=== PATIENT | male | born 1950 | race African-American/Black ===

== ENCOUNTER 2018-11-11 16:44 | Inpatient (IN) | payer OTHER ==
[2018-11-11 18:49] VITALS: BMI 20.3
--- NOTE | 2018-11-11 20:37 | HP ---
CIWA Score - Admission Criteria [facility]ASAS Guidelines: Admission for Medically Managed Detox: Requires at least one of the followin. CIWA greater than 12 2. Seizures within the past 24 hours 3. Delirium tremens within the past 24 hours 4. Hallucinations within the past 24 hours 5. Acute intervention needed for co occurring medical disorder 6. Acute intervention needed for co occurring psychiatric disorder 7. Severe withdrawal that cannot be handled at a lower level of care (continued vomiting, continued diarrhea, abnormal vital signs) requiring intravenous medication and/or fluids 8. Admission ROS [facility] Chief Complaint: Heroin dependence seeking admission to Rehab Allergies/Adverse Reactions: Allergies Allergy/AdvReac Type Severity Reaction Status Date / Time No Allergy Information Allergy Verified 11/11/18 18:30 Available History of Present Illness: 68 years old male with a long history of heroin dependence (reports 37 years ) is seeking admission to Rehab. He has history of HIV+, hypertension, hypercholesterolemia, neuropathy, CVA (2014), BPH, depression, Hep. C, TB ( treated with INH for a year), and anxiety. He denies suicidal ideation at this time. Patient is on Methadone 80mg tablet oral daily at [facility]. Last day medicated is today, 11/11/2018. Dose is yet to be confirmed by the nurse Exam Limitations: Physical Impairment - Ebola screening Have you traveled outside of the country in the last 21 days: No Have you had contact with anyone from an Ebola affected area: No Do you have a fever: No - Review of Systems Constitutional: No Symptoms Reported EENT: reports: No Symptoms Reported Respiratory: reports: No Symptoms reported Cardiac: reports: No Symptoms Reported GI: reports: No Symptoms Reported : reports: No Symptoms Reported Musculoskeletal: reports: No Symptoms Reported Integumentary: reports: Dryness Neuro: reports: No Symptoms reported Endocrine: reports: No Symptoms Reported Hematology: reports: No Symptoms Reported Psychiatric: reports: No Sypmtoms Reported, Mood/Affect Appropiate Other Systems: Reviewed and Negative Patient History - Patient Medical History Hx Anemia: No Hx Asthma: No Hx Chronic Obstructive Pulmonary Disease (COPD): No Hx Cancer: No Hx Cardiac Disorders: No Hx Congestive Heart Failure: No Hx Hypertension: Yes (Atenolol) Hx Hypercholesterolemia: Yes (Atorvastatin) Hx Pacemaker: No HX Cerebrovascular Accident: Yes (STROKE IN 2014 - Aspirin 81mg) Hx Seizures: No Hx Dementia: No Hx Diabetes: No Hx Gastrointestinal Disorders: No Hx Liver Disease: No Hx Genitourinary Disorders: No Hx Sexually Transmitted Disorders: No Hx Renal Disease (ESRD): No Hx Thyroid Disease: No Hx Human Immunodeficiency Virus (HIV): Yes (ON MEDICATION) Hx Hepatitis C: Yes Hx Depression: Yes Hx Suicide Attempt: No (Denies suicidal ideation at this time) Hx Bipolar Disorder: No Hx Schizophrenia: No Other Medical History: TB - Treated with INH for a year - Patient Surgical History Past Surgical History: Yes Hx Neurologic Surgery: No Hx Cataract Extraction: No Hx Cardiac Surgery: No Hx Lung Surgery: No Hx Abdominal Surgery: No Hx Appendectomy: No Hx Cholecystectomy: No Hx Genitourinary Surgery: No Hx Orthopedic Surgery: Yes (BROKEN JAW AND LEFT ARM REPAIR (1987), ) Anesthesia Reaction: No - PPD History Previous Implant?: No (H/O TB (Treated with INH for a year)) Implanted On Prior [facility] Admission?: No PPD to be Administered?: No - Reproductive History Patient is a Female of Child Bearing Age (11 -55 yrs old): No (male) - Smoking Cessation Smoking history: Current every day smoker Have you smoked in the past 12 months: Yes Aproximately how many cigarettes per day: 4 Hx Chewing Tobacco Use: No Initiated information on smoking cessation: Yes 'Breaking Loose' booklet given: 11/11/18 - Substance & Tx. History Hx Alcohol Use: No Hx Substance Use: Yes Substance Use Type: Cocaine, Heroin, Opiates Hx Substance Use Treatment: Yes ([place], [place]) - Substances abused Heroin Substance route: Inhalation Frequency: Daily Amount used: 4 to 5 bags Age of first use: 20 Date of last use: 11/11/18 Cocaine Substance route: Inhalation Frequency: 3-6 times per week Amount used: 4 to 6 bags Age of first use: 20 Date of last use: 11/10/18 Family Disease History - Family Disease History Family Disease History: Heart Disease: Father (Heart attack -), Mother Admission Physical Exam BHS - Vital Signs Vital Signs: Vital Signs - 24 hr 11/11/18 11/11/18 18:38 19:46 Temperature 97.1 F L 97.1 F L Pulse Rate 55 L 55 L Respiratory 18 18 Rate Blood Pressure 197/98 H 197/98 H - Physical General Appearance: Yes: Within Normal Limits HEENTM: Yes: Normal ENT Inspection, Normal Voice, RON Respiratory: Yes: Lungs Clear, Normal Breath Sounds, No Respiratory Distress Neck: Yes: Supple Breast: Yes: Breast Exam Deferred Cardiology: Yes: Bradycardia Abdominal: Yes: Normal Bowel Sounds Genitourinary: Yes: Within Normal Limits Back: Yes: Normal Inspection Musculoskeletal: Yes: Within Normal Limits Extremities: Yes: Within Normal Limits, Normal Inspection Neurological: Yes: Alert, Normal Mood/Affect Integumentary: Yes: Within Normal Limits Lymphatic: Yes: Within Normal Limits - Diagnostic (1) Opioid dependence with withdrawal Current Visit: Yes Status: Acute (2) Nicotine dependence Current Visit: Yes Status: Acute Qualifiers: Nicotine product type: cigarettes Substance use status: uncomplicated Qualified Code(s): F17.210 - Nicotine dependence, cigarettes, uncomplicated (3) Hypertension Current Visit: Yes Status: Chronic Qualifiers: Hypertension type: essential hypertension Qualified Code(s): I10 - Essential (primary) hypertension (4) HIV (human immunodeficiency virus infection) Current Visit: Yes Status: Chronic Qualifiers: HIV symptom status: unspecified Qualified Code(s): B20 - Human immunodeficiency virus [HIV] disease (5) Neuropathy Current Visit: Yes Status: Chronic (6) Depression Current Visit: Yes Status: Chronic Qualifiers: Depression Type: unspecified Qualified Code(s): F32.9 - Major depressive disorder, single episode, unspecified (7) Anxiety Current Visit: Yes Status: Acute (8) Hypercholesterolemia Current Visit: Yes Status: Chronic (9) BPH (benign prostatic hyperplasia) Current Visit: Yes Status: Chronic Qualifiers: Lower urinary tract symptom detail: unspecified (10) History of TB (tuberculosis) Current Visit: Yes Status: Chronic Cleared for Admission S - Detox or Rehab [facility] Level of Care: Observation Bed Claeared for Rehab Admission: Yes Breathalyzer - Breathalyzer Breathalyzer: 0 Urine Drug Screen - Test Device Lot number: [id number] Expiration date: 09/06/20 - Control Is test valid?: Yes - Results Drug screen NEGATIVE: No Urine drug screen results: SHIN-Cocaine, FEN-Fentanyl, MOP-Opiates, OXY-Oxycodone , MTD-Methadone Inpatient Rehab Admission - Rehab Decision to Admit Inpatient rehab admission?: Yes - Initial Determination Are CD services needed?: No Free of communicable disease: Yes Not in need of hospitalization: Yes - Rehab Admission Criteria Previous failed treatment: Yes Poor recovery environment: Yes Comorbidities: Yes Lacks judgement: No Patient is meeting Inpatient Rehab admission criteria:: Yes
[2018-11-11] MEDS ORDERED: MAGNESIUM CITRATE 300 ML BOTTLE PO PRN (21:12)
[2018-11-11] MEDS ORDERED: guaiFENesin 200 MG/10 ML 10 ML UNIT-DOSE CUPS PO PRN (21:12)
[2018-11-11] MEDS ORDERED: MAGNESIUM HYDROX 2400MG/30ML ORAL SUSPENSION 30 ML CUP PO PRN (21:12)
[2018-11-11] MEDS ORDERED: NICOTINE POLACRILEX 2 MG GUM BUC PRN (21:12)
[2018-11-11] MEDS ORDERED: MAG HYDROX/AL HYDROX/SIMETH 30 ML UNIT-DOSE CUP PO PRN (21:12)
[2018-11-11] MEDS ORDERED: LOPERAMIDE HCL 2 MG CAPSULE PO PRN (21:12)
[2018-11-11] MEDS ORDERED: MENTHOL/PHENOL 1 EACH UD MM PRN (21:12)
[2018-11-11] MEDS ORDERED: P-EPHED 60MG/TRIPROLIDI 2.5MG TABLET PO PRN (21:12)
[2018-11-11] MEDS: THIAMINE HCL 100 MG TABLET (FP) PO SCH (23:39)
[2018-11-11] MEDS: cloNIDine HCL 0.1 MG TABLET PO SCH (23:39)
[2018-11-12] MEDS ORDERED: METHADONE HCL 10 MG TABLET PO SCH (08:00)
[2018-11-12] MEDS ORDERED: METHADONE 40 MG, METHADONE 30 MG PO SCH (08:15)
[2018-11-12] MEDS ORDERED: METHADONE HCL 40 MG DISPERSABLE TABLET PO ONE (09:18)
--- NOTE | 2018-11-12 09:23 | PN ---
[facility] Progress Note Note: patient is on methadone maintenance 80 mgs/day,but received 70 mgs yesterday, verified by RN that paient supposed to receive regular dose,80 mgs from today, methadone 80 mgs po daily ordered
[2018-11-12] MEDS ORDERED: ATENOLOL 50 MG TABLET (FP) PO SCH (10:00)
[2018-11-12] MEDS: cloNIDine HCL 0.1 MG TABLET PO SCH ×2 (10:09→22:01)
[2018-11-12] MEDS: ASPIRIN 81 MG CHEWABLE TABLETS PO SCH (10:09)
[2018-11-12] MEDS: PRENATAL VITAMINS W/ FOLIC ACID TABLET (FP) PO SCH (10:09)
[2018-11-12] MEDS: NICOTINE 14 MG/24 HOURS TOPICAL PATCH TD SCH (10:10)
[2018-11-12] MEDS: THIAMINE HCL 100 MG TABLET (FP) PO SCH (22:00)
[2018-11-12] MEDS: MELATONIN 5 MG TABLETS PO PRN (22:01)
[2018-11-12] MEDS: IBUPROFEN 400 MG TABLET (FP) PO PRN (23:45)
[2018-11-13] MEDS: METHADONE HCL 40 MG DISPERSABLE TABLET PO SCH (06:30)
[2018-11-13] MEDS: cloNIDine HCL 0.1 MG TABLET PO SCH ×2 (10:09→21:21)
[2018-11-13] MEDS: PRENATAL VITAMINS W/ FOLIC ACID TABLET (FP) PO SCH (10:09)
[2018-11-13] MEDS: NICOTINE 14 MG/24 HOURS TOPICAL PATCH TD SCH (10:09)
[2018-11-13] MEDS: ASPIRIN 81 MG CHEWABLE TABLETS PO SCH (10:09)
[2018-11-13] MEDS: ATENOLOL 25 MG TABLET (FP) PO SCH (10:09)
[2018-11-13] MEDS: IBUPROFEN 400 MG TABLET (FP) PO PRN ×2 (16:03→22:03)
[2018-11-13] MEDS: ACETAMINOPHEN 325 MG TABLET (FP) PO PRN (18:16)
[2018-11-13] MEDS: MELATONIN 5 MG TABLETS PO PRN (21:21)
[2018-11-13] MEDS: THIAMINE HCL 100 MG TABLET (FP) PO SCH (21:21)
[2018-11-14] MEDS: METHADONE HCL 40 MG DISPERSABLE TABLET PO SCH (06:40)
[2018-11-14] MEDS: PRENATAL VITAMINS W/ FOLIC ACID TABLET (FP) PO SCH (10:09)
[2018-11-14] MEDS: ASPIRIN 81 MG CHEWABLE TABLETS PO SCH (10:09)
[2018-11-14] MEDS: IBUPROFEN 400 MG TABLET (FP) PO PRN ×2 (10:10→22:04)
[2018-11-14] MEDS: cloNIDine HCL 0.1 MG TABLET PO SCH ×2 (10:56→22:03)
[2018-11-14] MEDS: NICOTINE 14 MG/24 HOURS TOPICAL PATCH TD SCH (10:57)
[2018-11-14] MEDS: ATENOLOL 25 MG TABLET (FP) PO SCH (15:05)
[2018-11-14] MEDS: THIAMINE HCL 100 MG TABLET (FP) PO SCH (22:03)
[2018-11-14] MEDS: MELATONIN 5 MG TABLETS PO PRN (22:05)
[2018-11-15] MEDS: METHADONE HCL 40 MG DISPERSABLE TABLET PO SCH (06:33)
[2018-11-15] MEDS: ATENOLOL 25 MG TABLET (FP) PO SCH (11:12)
[2018-11-15] MEDS: PRENATAL VITAMINS W/ FOLIC ACID TABLET (FP) PO SCH (11:12)
[2018-11-15] MEDS: ASPIRIN 81 MG CHEWABLE TABLETS PO SCH (11:12)
[2018-11-15] MEDS: cloNIDine HCL 0.1 MG TABLET PO SCH ×2 (11:13→21:10)
[2018-11-15] MEDS: NICOTINE 14 MG/24 HOURS TOPICAL PATCH TD SCH (11:15)
[2018-11-15] MEDS: MELATONIN 5 MG TABLETS PO PRN (21:11)
[2018-11-15] MEDS: THIAMINE HCL 100 MG TABLET (FP) PO SCH (21:11)
[2018-11-15] MEDS: IBUPROFEN 400 MG TABLET (FP) PO PRN (21:11)
[2018-11-16] MEDS: METHADONE HCL 40 MG DISPERSABLE TABLET PO SCH (06:22)
[2018-11-16] MEDS: ASPIRIN 81 MG CHEWABLE TABLETS PO SCH (10:37)
[2018-11-16] MEDS: PRENATAL VITAMINS W/ FOLIC ACID TABLET (FP) PO SCH (10:39)
[2018-11-16] MEDS: ATENOLOL 25 MG TABLET (FP) PO SCH (10:39)
[2018-11-16] MEDS: IBUPROFEN 400 MG TABLET (FP) PO PRN (10:41)
[2018-11-16] MEDS: NICOTINE 14 MG/24 HOURS TOPICAL PATCH TD SCH (10:42)
[2018-11-16] MEDS: cloNIDine HCL 0.1 MG TABLET PO SCH ×2 (10:43→21:36)
[2018-11-16] MEDS: MELATONIN 5 MG TABLETS PO PRN (21:36)
[2018-11-16] MEDS: THIAMINE HCL 100 MG TABLET (FP) PO SCH (21:36)
[2018-11-16] MEDS: ACETAMINOPHEN 325 MG TABLET (FP) PO PRN (21:38)
[2018-11-17] MEDS: IBUPROFEN 400 MG TABLET (FP) PO PRN ×2 (06:48→21:06)
[2018-11-17] MEDS: METHADONE HCL 40 MG DISPERSABLE TABLET PO SCH (06:49)
[2018-11-17] MEDS: PRENATAL VITAMINS W/ FOLIC ACID TABLET (FP) PO SCH (10:39)
[2018-11-17] MEDS: NICOTINE 14 MG/24 HOURS TOPICAL PATCH TD SCH (10:39)
[2018-11-17] MEDS: ATENOLOL 25 MG TABLET (FP) PO SCH (10:39)
[2018-11-17] MEDS: ASPIRIN 81 MG CHEWABLE TABLETS PO SCH (10:39)
[2018-11-17] MEDS: cloNIDine HCL 0.1 MG TABLET PO SCH ×2 (10:41→21:05)
--- NOTE | 2018-11-17 14:52 | PN ---
[facility] Progress Note (SOAP) Subjective: PT C/O RIGHT FOOT DISCOMFORT STATING HE HAD SURGERY AT [facility] ON HIS RIGHT 2ND TOE IN JUNE 2018. ALSO REPORTS RIGHT INGUINAL HERNIA SX WITH MESH INSERTION IN 12/2016 BUT HAS BEEN HAVING PAIN ON THE AREA ON AND OFF AND HAS HAS GONE BACK FOR EVALUATION AND WAS RECOMMENDED FOR PAIN MANAGEMENT. HE REPORTS HE HAS DIFFICULTY BENDING FORWARD TO ATTEND TO HIS DAILY FEET HYGIENE DUE TO THE MESH PAIN REPORTS HE WAS REFERRED TO PODIATRY BUT NEVER MADE IT. PT REPORTS HE HAD A PCP AT [facility] WHO RECENTLY RETIRED 2 MONTHS AGO BUT WILL BE ASSIGNED TO ANOTHER. REPORTS HE HAS NEXT MEDICAL APPOINTMENT ON 12/02/18 AT [facility]. 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 Objective: 11/17/18 15:10 Vital Signs (72 hours) 11/14/18 11/14/18 11/15/18 16:17 22:00 00:30 Temperature Pulse Rate 64 62 Respiratory 18 Rate Blood Pressure 141/76 154/90 11/15/18 11/15/18 11/15/18 03:30 06:54 08:40 Temperature 97.8 F 97.7 F Pulse Rate 60 67 Respiratory 18 16 18 Rate Blood Pressure 141/76 162/89 11/15/18 11/16/18 11/16/18 10:00 00:30 03:30 Temperature Pulse Rate 75 Respiratory 18 18 Rate Blood Pressure 120/55 L 11/16/18 11/16/18 11/16/18 06:50 10:00 21:35 Temperature 97.8 F Pulse Rate 57 L 60 62 Respiratory 16 Rate Blood Pressure 140/84 134/74 177/94 H NO ADMISSION LABS ABDOMEN:SOFT,NT, ND, +BS EXTREMITIES:SEVERE DEFORMITIES TO TOES INCLUDING BUNIONS, BILAT. SEVERE DRY, THICK SCALING SKIN,BILAT. SLIGHT ANKLE SWELLINGS,BILATERAL Assessment: 11/17/18 15:14 S/P RIGHT INGUINAL HERNIA REPAIR S/P RIGHT FOOT 2ND TOE SURGERY BUNIONS,BILATERAL TOE DEFORMITIES, BILATERAL ANKLE SWELLING,BILATERAL EXTREME DRY SKIN WITH THICKENED SCALING, LOWER EXTREMITIES Plan: D/W NURSE TO ASSIST PT WITH WARM WATER FOOT SOAK WITH BETADINE SOLUTION TWICE DAILY LAC HYDRIN 12% LOTION APPLY BID AFTER EACH SOAK TX. MAINTAIN SAFETY D/W PT TO FOLLOW UP WITH MEDICAL APPOINTMENT ON 12/02/18 AT [facility] ADDRESS POST OP PAIN ON RIGHT GROIN SX SITE. ADDRESS PODIATRY NEEDS. MEET WITH COUNSELOR FOR AFTERCARE REFERRAL TO MEET PT'S SPECIAL NEEDS.
[2018-11-17] MEDS: THIAMINE HCL 100 MG TABLET (FP) PO SCH (21:06)
[2018-11-18] MEDS: METHADONE HCL 40 MG DISPERSABLE TABLET PO SCH (07:37)
[2018-11-18 10:31] LABS: ALBUMIN 2.5 g/dl (3.4-5.0); BILIRUBIN,TOTAL 0.2 mg/dL (0.2-1); BLOOD UREA NITROGEN 23.7 mg/dL (7-18); CALCIUM 8.5 mg/dL (8.5-10.1); CREATININE 1.7 mg/dL (0.55-1.3); POTASSIUM 4.7 mmol/L (3.5-5.1); TOT PROT 9.3 g/dl (6.4-8.2)
[2018-11-18 10:35] LABS: HEMATOCRIT 31.7 % (35.4-49); HEMOGLOBIN 10.4 GM/dL (11.7-16.9); MCH 27.1 pg (25.7-33.7); MCHC 32.8 g/dl (32.0-35.9); MEAN CELL VOLUME 82.6 fl (80-96); MEAN PLT VOLUME 8.6 fl (7.5-11.1); PLATELET COUNT 154 K/MM3 (134-434); RBC 3.84 M/mm3 (4.00-5.60); WHITE BLOOD COUNT 3.2 K/mm3 (4.0-10.0)
[2018-11-18] MEDS: PRENATAL VITAMINS W/ FOLIC ACID TABLET (FP) PO SCH (10:40)
[2018-11-18] MEDS: ASPIRIN 81 MG CHEWABLE TABLETS PO SCH (10:41)
[2018-11-18] MEDS: cloNIDine HCL 0.1 MG TABLET PO SCH ×2 (10:41→21:16)
[2018-11-18] MEDS: ATENOLOL 25 MG TABLET (FP) PO SCH (10:41)
[2018-11-18] MEDS: AMMONIUM LACTATE 12% LOTION 225 GM BOTTLE TP SCH ×2 (10:44→22:13)
[2018-11-18] MEDS: NICOTINE 14 MG/24 HOURS TOPICAL PATCH TD SCH (10:45)
[2018-11-18] MEDS ORDERED: FERROUS SO4 325 MG TABLET (FP) PO ONE (12:30)
--- NOTE | 2018-11-18 12:38 | PN ---
[facility] Progress Note Note: lab review: Vital Signs - 24 hr 11/17/18 11/17/18 11/18/18 21:20 21:21 00:30 Temperature Pulse Rate 62 Respiratory 18 Rate Blood Pressure 182/95 H 176/100 H 11/18/18 11/18/18 11/18/18 03:30 07:28 10:00 Temperature 97.0 F L Pulse Rate 52 L 56 L Respiratory 18 16 Rate Blood Pressure 170/81 158/84 Laboratory Tests 11/18/18 11/18/18 11/18/18 07:00 07:00 07:00 WBC 3.2 L RBC 3.84 L Hgb 10.4 L Hct 31.7 L MCV 82.6 MCH 27.1 MCHC 32.8 RDW 17.0 H Plt Count 154 MPV 8.6 Sodium 137 Potassium 4.7 Chloride 105 Carbon Dioxide 30 Anion Gap 2 L BUN 23.7 H Creatinine 1.7 H Est GFR (CKD-EPI)AfAm 47.65 Est GFR (CKD-EPI)NonAf 41.11 Random Glucose 87 Calcium 8.5 Total Bilirubin 0.2 AST 33 ALT 19 Alkaline Phosphatase 91 Total Protein 9.3 H Albumin 2.5 L RPR Titer Nonreactive pt alert o x 3 oob on wheelchair labs noted decreased h/hct sl. increased bun/cr a:Anemia r/o kidney injury plan:increase po fluids repeat bun, creat, cbc on 11/21/18
[2018-11-18] MEDS: MELATONIN 5 MG TABLETS PO PRN (21:16)
[2018-11-18] MEDS: THIAMINE HCL 100 MG TABLET (FP) PO SCH (21:16)
[2018-11-18] MEDS: FERROUS SO4 325 MG TABLET (FP) PO SCH (21:16)
[2018-11-18] MEDS: BACLOFEN 10 MG TABLET (FP) PO PRN (21:17)
[2018-11-18] MEDS: IBUPROFEN 400 MG TABLET (FP) PO PRN (21:17)
[2018-11-19] MEDS: METHADONE HCL 40 MG DISPERSABLE TABLET PO SCH (07:55)
[2018-11-19] MEDS: FERROUS SO4 325 MG TABLET (FP) PO SCH ×3 (07:56→18:06)
[2018-11-19] MEDS: ASPIRIN 81 MG CHEWABLE TABLETS PO SCH (10:19)
[2018-11-19] MEDS: ATENOLOL 25 MG TABLET (FP) PO SCH (10:19)
[2018-11-19] MEDS: NICOTINE 14 MG/24 HOURS TOPICAL PATCH TD SCH (10:20)
[2018-11-19] MEDS: PRENATAL VITAMINS W/ FOLIC ACID TABLET (FP) PO SCH (10:20)
[2018-11-19] MEDS: cloNIDine HCL 0.1 MG TABLET PO SCH ×2 (10:20→21:30)
[2018-11-19] MEDS: IBUPROFEN 400 MG TABLET (FP) PO PRN ×2 (10:21→21:30)
[2018-11-19] MEDS: AMMONIUM LACTATE 12% LOTION 225 GM BOTTLE TP SCH ×2 (10:21→21:32)
[2018-11-19] MEDS: MELATONIN 5 MG TABLETS PO PRN (21:30)
[2018-11-19] MEDS: THIAMINE HCL 100 MG TABLET (FP) PO SCH (21:30)
[2018-11-20] MEDS: METHADONE HCL 40 MG DISPERSABLE TABLET PO SCH (06:35)
[2018-11-20] MEDS: FERROUS SO4 325 MG TABLET (FP) PO SCH ×3 (07:01→18:21)
[2018-11-20] MEDS: PRENATAL VITAMINS W/ FOLIC ACID TABLET (FP) PO SCH (10:49)
[2018-11-20] MEDS: ASPIRIN 81 MG CHEWABLE TABLETS PO SCH (10:49)
[2018-11-20] MEDS: ATENOLOL 25 MG TABLET (FP) PO SCH (10:49)
[2018-11-20] MEDS: ACETAMINOPHEN 325 MG TABLET (FP) PO PRN ×2 (10:50→21:44)
[2018-11-20] MEDS: cloNIDine HCL 0.1 MG TABLET PO SCH ×2 (10:51→21:44)
[2018-11-20] MEDS: AMMONIUM LACTATE 12% LOTION 225 GM BOTTLE TP SCH ×2 (10:52→22:01)
[2018-11-20] MEDS: NICOTINE 14 MG/24 HOURS TOPICAL PATCH TD SCH (10:53)
[2018-11-20] MEDS: BACLOFEN 10 MG TABLET (FP) PO PRN (21:44)
[2018-11-20] MEDS: THIAMINE HCL 100 MG TABLET (FP) PO SCH (22:01)
[2018-11-21] MEDS: METHADONE HCL 40 MG DISPERSABLE TABLET PO SCH (07:20)
[2018-11-21] MEDS: FERROUS SO4 325 MG TABLET (FP) PO SCH ×3 (07:21→18:03)
[2018-11-21] MEDS: cloNIDine HCL 0.1 MG TABLET PO SCH (10:39)
[2018-11-21] MEDS: NICOTINE 14 MG/24 HOURS TOPICAL PATCH TD SCH (10:39)
[2018-11-21] MEDS: ATENOLOL 25 MG TABLET (FP) PO SCH (10:39)
[2018-11-21] MEDS: PRENATAL VITAMINS W/ FOLIC ACID TABLET (FP) PO SCH (10:40)
[2018-11-21] MEDS: AMMONIUM LACTATE 12% LOTION 225 GM BOTTLE TP SCH ×2 (10:40→21:40)
[2018-11-21] MEDS: BACLOFEN 10 MG TABLET (FP) PO PRN ×2 (10:42→21:41)
[2018-11-21 10:43] LABS: HEMATOCRIT 31.9 % (35.4-49); HEMOGLOBIN 10.7 GM/dL (11.7-16.9); MCH 27.6 pg (25.7-33.7); MCHC 33.5 g/dl (32.0-35.9); MEAN CELL VOLUME 82.5 fl (80-96); MEAN PLT VOLUME 8.3 fl (7.5-11.1); PLATELET COUNT 151 K/MM3 (134-434); RBC 3.86 M/mm3 (4.00-5.60); RDW 17.2 % (11.9-15.9); WHITE BLOOD COUNT 4.2 K/mm3 (4.0-10.0)
[2018-11-21 10:56] LABS: BLOOD UREA NITROGEN 26.7 mg/dL (7-18); CREATININE 1.7 mg/dL (0.55-1.3)
[2018-11-21] MEDS: ASPIRIN 81 MG CHEWABLE TABLETS PO SCH (13:28)
--- NOTE | 2018-11-21 13:47 | PN ---
[facility] Progress Note Note: NURSE REPORTS THAT PT'S BP HAS BEEN OUT UNCONTROLLOED. PT IS CURRENTLY ON ATENOLOL AND ASPIRIN SINCE HE WAS ADMITTED. ON REVIEW OF PT'S OUTSIDE PHARMACY, PT IS CURRENTLY ON: Home Medications Medication Instructions Recorded Aspirin [ASA -] 81 mg PO DAILY 11/11/18 Atenolol [Tenormin -] 50 mg PO DAILY 11/11/18 Amlodipine Besylate 10 mg PO DAILY 11/21/18 Atorvastatin Ca [Lipitor] 20 mg PO DAILY 11/21/18 Darunavir/Cobicistat [Prezcobix 1 each PO DAILY 11/21/18 800 mg-150 mg Tablet] Dolutegravir Sodium [Tivicay] 50 mg PO DAILY 11/21/18 Lamivudine 300 mg PO DAILY 11/21/18 Metoprolol Succinate [Toprol Xl] 25 mg PO DAILY 11/21/18 Multivit with Iron,Minerals 1 each PO DAILY 11/21/18 [Complete Senior] PT REPORTS HE TAKES THE ABOVE MEDS BUT APPEARS TO BE A POOR HISTORIAN AND DID NOT GIVE ALL MEDS INFORMATION ON ADMISSION. PT ALSO REPORTS HE REACTED UNFAVORABLY TO "A BLOOD PRESSURE MEDICATION IN 2005 AND THEY STOPPED IT. THEY DON'T GIVE ME THAT MEDICATION SINCE THEN". THIS BREAKFAST MANAGER CALLED PT[facility] ON [facility] AT [phone], BUT NO RESPONSE. NURSE NAS CALLED AND SPOKE WITH THE PHARMACIST WHO CONFIRMED ABOVE MEDS AND STATES PT'S ALLERGIES ARE UNKNOWN WELL TO THEM BUT HAS BEEN TAKING THE ABOVE MEDS RX EACH TIME TILL CURRENT. HOWEVER, PT IS NONCOMPLIANT WITH ANTIRETROVIRAL MEDS AND REPORTS HE HAS NOT BEEN TAKING THEM. A:HX HTN HX HIV+ P:D/C ATENOLOL RESTART METOPROLOL 25 MG PO DAILY AMLODIPINE 10 MG PO DAILY CONTINUE ATORVASTATIN AND ASPIRIN DIRECTED. PT WILL FOLLOW UP WITH HIS PCP AFTER REHAB FOR MEDICAL MANAGEMENT OF COMORBID CONDITIONS. ADDENDUM:ANOTHER CALL TO HIS OUTSIDE PHARMACY INFORMED THIS BREAKFAST MANAGER THE PRESCRIBER IS MILO BAILEY AT [facility] [address] [facility] PH:[phone].
[2018-11-21] MEDS: amLODIPine BESYLATE 10 MG TABLET (FP) PO SCH (14:54)
[2018-11-21] MEDS: THIAMINE HCL 100 MG TABLET (FP) PO SCH (21:40)
[2018-11-21] MEDS: MELATONIN 5 MG TABLETS PO PRN (21:40)
[2018-11-21] MEDS: IBUPROFEN 400 MG TABLET (FP) PO PRN (21:41)
[2018-11-22] MEDS: FERROUS SO4 325 MG TABLET (FP) PO SCH ×3 (07:35→17:23)
[2018-11-22] MEDS: METHADONE HCL 40 MG DISPERSABLE TABLET PO SCH (07:35)
[2018-11-22] MEDS: IBUPROFEN 400 MG TABLET (FP) PO PRN ×2 (07:36→22:01)
[2018-11-22] MEDS: amLODIPine BESYLATE 10 MG TABLET (FP) PO SCH (11:17)
[2018-11-22] MEDS: PRENATAL VITAMINS W/ FOLIC ACID TABLET (FP) PO SCH (11:17)
[2018-11-22] MEDS: ASPIRIN 81 MG CHEWABLE TABLETS PO SCH (11:17)
[2018-11-22] MEDS: metoPROLOL SUCCINATE 25 MG TAB.SR.24H (FP) PO SCH (11:17)
[2018-11-22] MEDS: AMMONIUM LACTATE 12% LOTION 225 GM BOTTLE TP SCH ×2 (11:18→22:01)
[2018-11-22] MEDS: NICOTINE 14 MG/24 HOURS TOPICAL PATCH TD SCH (11:19)
[2018-11-22] MEDS: THIAMINE HCL 100 MG TABLET (FP) PO SCH (21:59)
[2018-11-22] MEDS: MELATONIN 5 MG TABLETS PO PRN (22:00)
[2018-11-22] MEDS: BACLOFEN 10 MG TABLET (FP) PO PRN (22:01)
[2018-11-23] MEDS: METHADONE HCL 40 MG DISPERSABLE TABLET PO SCH (06:39)
[2018-11-23] MEDS: IBUPROFEN 400 MG TABLET (FP) PO PRN (06:40)
[2018-11-23] MEDS: FERROUS SO4 325 MG TABLET (FP) PO SCH ×3 (07:05→17:45)
[2018-11-23] MEDS: ASPIRIN 81 MG CHEWABLE TABLETS PO SCH (10:44)
[2018-11-23] MEDS: amLODIPine BESYLATE 10 MG TABLET (FP) PO SCH (10:44)
[2018-11-23] MEDS: metoPROLOL SUCCINATE 25 MG TAB.SR.24H (FP) PO SCH (10:44)
[2018-11-23] MEDS: PRENATAL VITAMINS W/ FOLIC ACID TABLET (FP) PO SCH (10:44)
[2018-11-23] MEDS: AMMONIUM LACTATE 12% LOTION 225 GM BOTTLE TP SCH ×2 (10:45→22:10)
[2018-11-23] MEDS: NICOTINE 14 MG/24 HOURS TOPICAL PATCH TD SCH (10:45)
[2018-11-23] MEDS: ACETAMINOPHEN 325 MG TABLET (FP) PO PRN (21:32)
[2018-11-23] MEDS: MELATONIN 5 MG TABLETS PO PRN (21:32)
[2018-11-23] MEDS: THIAMINE HCL 100 MG TABLET (FP) PO SCH (21:32)
[2018-11-24] MEDS: FERROUS SO4 325 MG TABLET (FP) PO SCH ×3 (08:00→18:47)
[2018-11-24] MEDS: METHADONE HCL 40 MG DISPERSABLE TABLET PO SCH ×2 (08:04→08:42)
[2018-11-24] MEDS: metoPROLOL SUCCINATE 25 MG TAB.SR.24H (FP) PO SCH (11:11)
[2018-11-24] MEDS: NICOTINE 14 MG/24 HOURS TOPICAL PATCH TD SCH (11:11)
[2018-11-24] MEDS: PRENATAL VITAMINS W/ FOLIC ACID TABLET (FP) PO SCH (11:11)
[2018-11-24] MEDS: amLODIPine BESYLATE 10 MG TABLET (FP) PO SCH (11:11)
[2018-11-24] MEDS: ASPIRIN 81 MG CHEWABLE TABLETS PO SCH (11:11)
[2018-11-24] MEDS: AMMONIUM LACTATE 12% LOTION 225 GM BOTTLE TP SCH ×2 (11:12→22:32)
[2018-11-24] MEDS: BACLOFEN 10 MG TABLET (FP) PO PRN (22:07)
[2018-11-24] MEDS: THIAMINE HCL 100 MG TABLET (FP) PO SCH (22:07)
[2018-11-24] MEDS: MELATONIN 5 MG TABLETS PO PRN (22:07)
[2018-11-25] MEDS ORDERED: METHADONE HCL 40 MG DISPERSABLE TABLET PO SCH (06:00)
[2018-11-25 06:46] VITALS: BP 140/91; PULSE 68; TEMP 97.6
[2018-11-25] MEDS: METHADONE HCL 40 MG DISPERSABLE TABLET PO SCH (07:09)
[2018-11-25] MEDS: FERROUS SO4 325 MG TABLET (FP) PO SCH (08:02)
--- NOTE | 2018-11-25 09:45 | PN ---
[facility] Progress Note (SOAP) Subjective: PT COMPLETED REHAB AND DISCHARGED TODAY . PT MET WITH HIS COUNSELOR, MS TENZIN AWAD AND HAS BEEN REFERRED TO [facility] FOR CD AFTERCARE. PT REPORTS HE HAS PRIMARY CARE/I.D CLINIC AT [facility] AND HAS AN APPOINTMENT SET UP ON 12/02/18 FOR FOLLOW UP. PT REPORTS HE HAS OWN MEDICATIONS AT HOME AND NO NEED FOR COURTESY RX AT THIS TIME. PT IS ALERT O X 3. DENIES S/H/I. Objective: 11/25/18 09:44 Vital Signs - 24 hr 11/24/18 11/25/18 11/25/18 10:00 00:30 03:30 Temperature Pulse Rate 69 Respiratory 17 18 Rate Blood Pressure 155/96 11/25/18 06:45 Temperature 97.6 F Pulse Rate 68 Respiratory 16 Rate Blood Pressure 140/91 Laboratory Tests 11/18/18 11/18/18 11/18/18 07:00 07:00 07:00 WBC 3.2 L RBC 3.84 L Hgb 10.4 L Hct 31.7 L MCV 82.6 MCH 27.1 MCHC 32.8 RDW 17.0 H Plt Count 154 MPV 8.6 Sodium 137 Potassium 4.7 Chloride 105 Carbon Dioxide 30 Anion Gap 2 L BUN 23.7 H Creatinine 1.7 H Est GFR (CKD-EPI)AfAm 47.65 Est GFR (CKD-EPI)NonAf 41.11 Random Glucose 87 Calcium 8.5 Total Bilirubin 0.2 AST 33 ALT 19 Alkaline Phosphatase 91 Total Protein 9.3 H Albumin 2.5 L RPR Titer Nonreactive 11/21/18 11/21/18 08:15 08:15 WBC 4.2 RBC 3.86 L Hgb 10.7 L Hct 31.9 L MCV 82.5 MCH 27.6 MCHC 33.5 RDW 17.2 H Plt Count 151 MPV 8.3 Sodium Potassium Chloride Carbon Dioxide Anion Gap BUN 26.7 H Creatinine 1.7 H Est GFR (CKD-EPI)AfAm 47.65 Est GFR (CKD-EPI)NonAf 41.11 Random Glucose Calcium Total Bilirubin AST ALT Alkaline Phosphatase Total Protein Albumin RPR Titer 11/25/18 10:05 Laboratory Tests 11/18/18 11/18/18 11/18/18 07:00 07:00 07:00 WBC 3.2 L RBC 3.84 L Hgb 10.4 L Hct 31.7 L MCV 82.6 MCH 27.1 MCHC 32.8 RDW 17.0 H Plt Count 154 MPV 8.6 Sodium 137 Potassium 4.7 Chloride 105 Carbon Dioxide 30 Anion Gap 2 L BUN 23.7 H Creatinine 1.7 H Est GFR (CKD-EPI)AfAm 47.65 Est GFR (CKD-EPI)NonAf 41.11 Random Glucose 87 Calcium 8.5 Total Bilirubin 0.2 AST 33 ALT 19 Alkaline Phosphatase 91 Total Protein 9.3 H Albumin 2.5 L RPR Titer Nonreactive 11/21/18 11/21/18 08:15 08:15 WBC 4.2 RBC 3.86 L Hgb 10.7 L Hct 31.9 L MCV 82.5 MCH 27.6 MCHC 33.5 RDW 17.2 H Plt Count 151 MPV 8.3 Sodium Potassium Chloride Carbon Dioxide Anion Gap BUN 26.7 H Creatinine 1.7 H Est GFR (CKD-EPI)AfAm 47.65 Est GFR (CKD-EPI)NonAf 41.11 Random Glucose Calcium Total Bilirubin AST ALT Alkaline Phosphatase Total Protein Albumin RPR Titer 11/25/18 10:24 Home Medications Medication Instructions Recorded Aspirin [ASA -] 81 mg PO DAILY 11/11/18 Atenolol [Tenormin -] 50 mg PO DAILY 11/11/18 Amlodipine Besylate 10 mg PO DAILY 11/21/18 Atorvastatin Ca [Lipitor] 20 mg PO DAILY 11/21/18 Darunavir/Cobicistat [Prezcobix 1 each PO DAILY 11/21/18 800 mg-150 mg Tablet] Dolutegravir Sodium [Tivicay] 50 mg PO DAILY 11/21/18 Lamivudine 300 mg PO DAILY 11/21/18 Metoprolol Succinate [Toprol Xl] 25 mg PO DAILY 11/21/18 Multivit with Iron,Minerals 1 each PO DAILY 11/21/18 [Complete Senior] Assessment: 11/25/18 09:45 NAD MEDICALLY STABLE 11/25/18 10:34 [facility] Inpatient Services Medical - Diagnosis (1) Nicotine dependence Qualifiers: Nicotine product type: cigarettes Substance use status: uncomplicated Qualified Code(s): F17.210 - Nicotine dependence, cigarettes, uncomplicated Current Visit: Yes Status: Chronic (2) BPH (benign prostatic hyperplasia) Qualifiers: Lower urinary tract symptom detail: unspecified Current Visit: Yes Status: Chronic (3) HIV (human immunodeficiency virus infection) Qualifiers: HIV symptom status: unspecified Qualified Code(s): B20 - Human immunodeficiency virus [HIV] disease Current Visit: Yes Status: Chronic (4) Hypercholesterolemia Current Visit: Yes Status: Chronic (5) Hypertension Qualifiers: Hypertension type: essential hypertension Qualified Code(s): I10 - Essential (primary) hypertension Current Visit: Yes Status: Chronic (6) Neuropathy Current Visit: Yes Status: Chronic (7) Opioid dependence Qualifiers: Substance use status: uncomplicated Qualified Code(s): F11.20 - Opioid dependence, uncomplicated Current Visit: Yes Status: Chronic (8) Walker as ambulation aid Current Visit: Yes Status: Chronic Initialized on 11/25/18 10:27 - END OF NOTE Plan: FOLLOW UP WITH CD AFTERCARE RECOMMENDED. FOLLOW WITH PRIMARY CARE/I.D CLINIC AT [facility] ON 12/02/18 SCHEDULED. FOLLOW UP WITH HOUSING PER COUNSELOR'S RECOMMENDATION. [facility] : [address] [place], [place] PH:
[2018-11-25] MEDS: IBUPROFEN 400 MG TABLET (FP) PO PRN (11:11)
[2018-11-25] MEDS: metoPROLOL SUCCINATE 25 MG TAB.SR.24H (FP) PO SCH (11:11)
[2018-11-25] MEDS: PRENATAL VITAMINS W/ FOLIC ACID TABLET (FP) PO SCH (11:11)
[2018-11-25] MEDS: amLODIPine BESYLATE 10 MG TABLET (FP) PO SCH (11:11)
[2018-11-25] MEDS: ASPIRIN 81 MG CHEWABLE TABLETS PO SCH (11:11)
[2018-11-25] MEDS: AMMONIUM LACTATE 12% LOTION 225 GM BOTTLE TP SCH (11:12)
[2018-11-25] MEDS: NICOTINE 14 MG/24 HOURS TOPICAL PATCH TD SCH (11:14)
== END 2018-11-25 11:25 | disposition home or self-care (01) | DRG 895 ==
LOC: YASAS 16:44 → Y6N 20:44 → Y5N 22:03
PROVIDERS: ADMIT Surgery; ATTEND Neuromusculoskeletal Medicine & OMM
PROC: HZ42ZZZ Group Counseling for Substance Abuse Treatment, Cognitive-Behavioral (ICD-10-PCS; principal; 2018-11-11)
DX: F11.20 Opioid dependence, uncomplicated (principal); F17.210 Nicotine dependence, cigarettes, uncomplicated; F32.9 Major depressive disorder, single episode, unspecified; F41.9 Anxiety disorder, unspecified; I10 Essential (primary) hypertension; B18.2 Chronic viral hepatitis C; N40.0 Benign prostatic hyperplasia without lower urinary tract symptoms; Z21 Asymptomatic human immunodeficiency virus [HIV] infection status; E78.00 Pure hypercholesterolemia, unspecified; R23.4 Changes in skin texture; G62.9 Polyneuropathy, unspecified; M20.11 Hallux valgus (acquired), right foot; M20.12 Hallux valgus (acquired), left foot; M21.611 Bunion of right foot; M21.612 Bunion of left foot; M25.472 Effusion, left ankle; M25.471 Effusion, right ankle; L98.8 Other specified disorders of the skin and subcutaneous tissue; R26.2 Difficulty in walking, not elsewhere classified; Z99.89 Dependence on other enabling machines and devices; Z86.73 Personal history of transient ischemic attack (TIA), and cerebral infarction without residual deficits; Z79.82 Long term (current) use of aspirin; Z86.11 Personal history of tuberculosis
CPT/HCPCS: 36415; 80053; 82565; 84520; 85027; 86593; J0475; J0735